=== PATIENT | male | born 1995 | race Caucasian/White ===

== ENCOUNTER 2024-02-09 14:24 | Emergency (ER) | payer SELFPAY | END 2024-02-09 14:49 | disposition home or self-care (01) | LOC: MADERS 14:24 | DX: S91.311D Laceration without foreign body, right foot, subsequent encounter (principal); X58.XXXD Exposure to other specified factors, subsequent encounter ==

== ENCOUNTER 2024-04-23 19:26 | Emergency (ER) | payer BC, SELFPAY ==
[2024-04-23] MEDS ORDERED: diphenhydrAMINE 12.5 MG/5 ML UDCUP ONE (19:29)
[2024-04-23] MEDS ORDERED: EPINEPHrine 1 MG/ML VIAL ONE (19:29)
[2024-04-23] MEDS ORDERED: Loratadine 10 MG TAB ONE (20:35)
== END 2024-04-23 20:37 | disposition home or self-care (01) ==
LOC: MADERS 19:26
DX: T63.441A Toxic effect of venom of bees, accidental (unintentional), initial encounter (principal); L29.89 Other pruritus; R09.89 Other specified symptoms and signs involving the circulatory and respiratory systems; J45.909 Unspecified asthma, uncomplicated; F17.290 Nicotine dependence, other tobacco product, uncomplicated; Z91.030 Bee allergy status
CPT/HCPCS: 96372; 99282; J0171; Q0163

== ENCOUNTER 2024-07-10 18:18 | Emergency (ER) | payer BC, SELFPAY ==
[2024-07-10] MEDS ORDERED: guaiFENesin ER 600 MG TAB ONE (18:50)
[2024-07-10] MEDS ORDERED: predniSONE 20 MG TAB ONE (19:34)
[2024-07-10] MEDS ORDERED: Albuterol 200 PUFF (6.7GM INHALER) ONE (19:34)
== END 2024-07-10 19:45 | disposition home or self-care (01) ==
LOC: MADERS 18:18
DX: J20.8 Acute bronchitis due to other specified organisms (principal); F17.220 Nicotine dependence, chewing tobacco, uncomplicated
CPT/HCPCS: 71046; 87400; 87426; 93005; J7512

== ENCOUNTER 2025-03-22 17:38 | Emergency (ER) | payer SELFPAY ==
[2025-03-22] MEDS ORDERED: Ibuprofen 800 MG TAB ONE (17:58)
== END 2025-03-22 18:46 | disposition home or self-care (01) ==
LOC: MADERS 17:38
DX: S50.01XA Contusion of right elbow, initial encounter (principal); F17.220 Nicotine dependence, chewing tobacco, uncomplicated; F17.290 Nicotine dependence, other tobacco product, uncomplicated; W22.8XXA Striking against or struck by other objects, initial encounter; Y99.0 Civilian activity done for income or pay
CPT/HCPCS: 99283

== ENCOUNTER 2025-06-06 11:42 | Emergency (ER) | payer SELFPAY | END 2025-06-06 12:24 | disposition home or self-care (01) | LOC: MADERS 11:42 | DX: R11.2 Nausea with vomiting, unspecified (principal); J45.909 Unspecified asthma, uncomplicated | CPT/HCPCS: 99283; Q0162 ==